=== PATIENT | female | born 1990 | race Caucasian/White ===

== ENCOUNTER 2024-09-18 05:54 | Inpatient (IN) | payer OTHER ==
[2024-09-18] MEDS ORDERED: OXYTOCIN 10 UNIT/ML 1 ML VIAL IM PRN (06:23)
[2024-09-18] MEDS ORDERED: TERBUTALINE 1 MG/ML VIAL SQ PRN (06:23)
[2024-09-18] MEDS ORDERED: METHYLERGONOVINE 0.2 MG/ML 1 ML AMP IM PRN (06:23)
[2024-09-18] MEDS ORDERED: CARBOPROST TROMETHAMINE 250 MCG/ML 1 ML AMP IM PRN (06:23)
[2024-09-18] MEDS ORDERED: LIDOCAINE 0.5% (PF) 5 MG/ML (50 ML SDV) SQ PRN (06:23)
[2024-09-18] MEDS ORDERED: miSOPROStoL 200 MCG TAB PO PRN (06:23)
[2024-09-18] MEDS ORDERED: miSOPROStoL 200 MCG TAB RECTAL PRN (06:23)
[2024-09-18] MEDS ORDERED: TRANEXAMIC 1,000 MG/100ML-NACL 1,000 MG in EMPTY BAG 1 BAG IV PRN (06:23)
[2024-09-18 06:57] LABS: Basophils % (A) 0 %; Eosinophils # (A) 0.2 k/uL (0-0.7); Eosinophils % (A) 2 %; HCT 34.8 % (34.0-46.0); HGB 12.1 gm/dL (11.4-16.0); Lymphocytes # (A) 2.1 k/uL (1.0-4.8); Lymphocytes % (A) 19 %; MCH 31.9 pg (25.0-35.0); MCHC 34.7 g/dL (31.0-37.0); MCV 91.7 fL (80.0-100.0); Mean Platelet Volume 8.3; Monocytes # (A) 0.5 k/uL (0-1.0); Monocytes % (A) 4 %; Neutrophils # (A) 8.2 k/uL (1.3-7.7); Neutrophils % (A) 74 %; Platelet Count 135 k/uL (150-450); RBC 3.79 m/uL (3.80-5.40); RDW 13.8 % (11.5-15.5); WBC 11.1 k/uL (3.8-10.6)
[2024-09-18] MEDS: LACTATED RINGERS 1,000 ML IV SCH (07:32)
[2024-09-18] MEDS: OXYTOCIN 30 UNITS/500 ML NS 30 UNIT in SALINE 1 500ML.BAG IV SCH (07:32)
[2024-09-18] MEDS ORDERED: BUTORPHANOL 1 MG/ML 1 ML VIAL IV PRN (09:47)
--- NOTE | 2024-09-18 09:51 | P.HPOB ---
History of Present Illness H&P Date: 09/18/24 Chief Complaint: 41 and 1 sevenths weeks, induction Patient is a 34-year-old 3 para 1-0-1-1 admitted at 41 and 1 sevenths weeks as established by last menstrual period and confirmed by 11-week ultrasound. She presents for postdates induction of labor with all signs reassuring, category 1 heart rate tracing. She did have 1 spontaneous deceleration shortly after arrival this morning which has resolved. Her has been entirely uncomplicated and group B strep status is negative. Obstetrical history: 3 para 1-0-1-1 with 1 term vaginal delivery. Current statistics are listed in history of present illness. EDC of 09/10/2024 was established by last menstrual period confirmed by 11-week ultrasound. Laboratory workup demonstrates a blood type of a positive with a negative antibody screen. Rubella status is immune. The remainder of the laboratory workup was within normal limits. trisomy testing was negative. 1 hour Glucola was normal and group B strep status is negative. Gynecologic history: Unremarkable with no history of any infections to include STDs. Review of Systems Review of systems is confined to history of present illness. Past Medical History Past Medical History: No Reported History History of Any Multi-Drug Resistant Organisms: None Reported Past Surgical History: No Surgical Hx Reported Past Anesthesia/Blood Transfusion Reactions: No Reported Reaction Past Psychological History: ADD/ADHD Smoking Status: Never smoker Past Alcohol Use History: None Reported Past Drug Use History: None Reported Medications and Allergies Home Medications Medication Instructions Recorded Confirmed Type Vit No.179/Iron/Folic 1 each PO DAILY 09/18/24 09/18/24 History [ Tablet] Allergies Allergy/AdvReac Type Severity Reaction Status Date / Time No Known Allergies Allergy Verified 09/18/24 06:20 Exam Vital Signs Temp Pulse Resp BP Pulse Ox 09/18/24 06:19 97.6 F 76 16 122/64 100 Intake and Output 09/17/24 09/18/24 09/18/24 22:59 06:59 14:59 Other: Weight 92.079 kg General, this is a well-developed, well-nourished white female in no acute distress. Her heart has a regular rhythm and rate without murmur. Her lungs are clear to auscultation bilaterally in all simmons. Her abdomen is gravid, nondistended, has normal active bowel sounds, soft, nontender, and without any palpable masses aside from the uterine fundus. Her extremities are without any cyanosis, clubbing, or edema and are nontender to palpation bilaterally. Digital cervical examination demonstrates her cervix to be 2+ centimeters dilated, 50% effaced, with a vertex and presentation at -2 station. Artificial rupture of membranes is carried out demonstrating clear fluid. Results Result Diagrams: 09/18/24 06:23 Abnormal Lab Results - Last 24 Hours (Table) 09/18/24 Range/Units 06:23 WBC 11.1 H (3.8-10.6) k/uL RBC 3.79 L (3.80-5.40) m/uL Plt Count 135 L (150-450) k/uL Neutrophils # 8.2 H (1.3-7.7) k/uL Assessment and Plan (1) Post-dates Current Visit: Yes Status: Acute Code(s): O48.0 - POST-TERM SNOMED Code(s): 49746613 Plan: The patient is admitted for induction of labor. Pitocin augmentation has been started and she has undergone artificial rupture membranes. She will have close maternal and surveillance and expectant management will be practiced. She is a good candidate for either IV or epidural analgesia, chart she may choose.
[2024-09-18] MEDS ORDERED: diphenhydrAMINE 50 MG CAP PO PRN (14:29)
[2024-09-18] MEDS ORDERED: SIMETHICONE 80 MG CHEWABLE PO PRN (14:29)
[2024-09-18] MEDS ORDERED: diphenhydrAMINE 25 MG CAP PO PRN (14:29)
[2024-09-18] MEDS ORDERED: diphenhydrAMINE 50 MG/ML 1 ML VIAL IVP PRN ×2 (14:29)
[2024-09-18] MEDS ORDERED: LANOLIN CREAM 1 GM TUBE TOPICAL PRN (14:29)
[2024-09-18] MEDS ORDERED: HYDROCORTISONE 2.5% RECTAL CREAM 30 GM TUBE RECTAL PRN (14:29)
[2024-09-18] MEDS ORDERED: ZOLPIDEM 5 MG TAB PO PRN (14:29)
[2024-09-18] MEDS ORDERED: OXYTOCIN 30 UNITS/500 ML NS 30 UNIT in SALINE 1 500ML.BAG IV SCH (14:30)
--- NOTE | 2024-09-18 14:34 | P.PROBDLV ---
Vaginal Delivery Note - . Vaginal Delivery Note: The patient is a 34-year-old 3 para 1-0-1-1 admitted at 41 and 1 sevenths weeks by good dating parameters. She is admitted for postdates induction of labor with all signs reassuring, category 1 heart rate tracing. Her was completely uncomplicated and group B strep status is negative. On labor and delivery, she had Pitocin started followed by artificial rupture of membranes for clear fluid. She made progress to the junction of the latent and active phase of labor and had an epidural catheter placed for analgesia. She made steady and relatively quick progress through the active phase of labor to complete and then pushed over the course of approximately 4-5 pushes to a normal spontaneous vaginal delivery of a viable 7 pound 2.5 ounce baby girl with Apgars of 8 at 1 minute and 9 at 5 minutes delivered in the direct occiput anterior position. The placenta was delivered spontaneously, intact, and grossly normal with a grossly normal, marginally inserted three- vessel cord. There were no lacerations of the perineum, vagina, or cervix. Estimated blood loss for the case was 100 mL or less. All sponge, instrument, and needle counts were correct. There were no complications. Both mother and are resting comfortably in recovery.
[2024-09-18] MEDS: BENZOCAINE/MENTHOL SPRAY 1 GM/SPRAY AEROSOL TOPICAL PRN (14:42)
[2024-09-18 16:33] VITALS: RESP 16
[2024-09-18] MEDS: ACETAMINOPHEN TAB 500 MG TAB PO SCH (17:03)
[2024-09-18] MEDS: IBUPROFEN 800 MG TAB PO SCH (17:03)
[2024-09-18] MEDS: IBUPROFEN 800 MG TAB PO PRN (17:49)
[2024-09-18] MEDS: SENNOSIDES-DOCUSATE SODIUM 1 EACH TAB PO SCH (22:18)
[2024-09-19 06:15] LABS: Basophils % (A) 0 %; Eosinophils # (A) 0.2 k/uL (0-0.7); Eosinophils % (A) 2 %; HCT 32.5 % (34.0-46.0); HGB 11.2 gm/dL (11.4-16.0); Lymphocytes % (A) 23 %; MCH 31.9 pg (25.0-35.0); MCHC 34.4 g/dL (31.0-37.0); MCV 92.7 fL (80.0-100.0); Mean Platelet Volume 8.5; Monocytes # (A) 0.5 k/uL (0-1.0); Monocytes % (A) 6 %; Neutrophils % (A) 68 %; Platelet Count 120 k/uL (150-450); RDW 13.6 % (11.5-15.5); WBC 8.9 k/uL (3.8-10.6)
[2024-09-19] MEDS: ACETAMINOPHEN TAB 500 MG TAB PO PRN (08:02)
[2024-09-19 08:43] VITALS: BP 104/68; PULSE 75; TEMP 97.7
--- NOTE | 2024-09-19 08:51 | P.DS ---
Providers Date of admission: 09/18/24 05:54 Expected date of discharge: 09/19/24 Attending physician: Kevin Orellana Primary care physician: Stated None - Discharge Diagnosis(es) (1) Post-dates Current Visit: Yes Status: Acute (2) Normal spontaneous vaginal delivery Current Visit: Yes Status: Acute Hospital Course: The patient is a 34-year-old 3 para 1-0-1-1 admitted at 41 and 1 sevenths weeks by good dating parameters. She is admitted for induction of labor with all signs reassuring, category 1 heart rate tracing. Her was uncomplicated and group B strep status is negative. On labor and delivery, she had Pitocin started followed by artificial rupture of membranes. She had an epidural catheter placed and made fairly quick progress through the active phase of labor to complete. She pushed to a normal spontaneous vaginal delivery of a viable 7 pound 2.5 ounce baby girl with Apgars of 8 at 1 minute and 9 at 5 minutes. Her course was unremarkable with vital signs remaining stable and her temperature was afebrile throughout. She was deemed stable for discharge on day #1 and was discharged home to follow-up in the office in 6 weeks time routinely. Discharge instructions included calling for any significantly increased bleeding or foul-smelling lochia, significantly increased fever abdominal pain, perineal complaints, breast complaints, or anything else that concerned her. She was additionally instructed to have nothing in the vagina to include intercourse over the next 6 weeks time. She understood her instructions and agrees to follow-up as noted above. Maternal blood type is a positive with a negative antibody screen. Rubella status is immune. Procedures: #1. Pitocin induction #2. Artificial rupture of membranes #3. Epidural analgesia #4. Normal spontaneous vaginal delivery Patient Condition at Discharge: Stable Plan - Discharge Summary New Discharge Prescriptions: No Action Vit No.179/Iron/Folic [ Tablet] 1 each PO DAILY Discharge Medication List Vit No.179/Iron/Folic [ Tablet] 1 each PO DAILY 09/18/24 [History] Follow up Appointment(s)/Referral(s): Kevin Orellana MD [STAFF PHYSICIAN] - 10/30/24 1:15 pm Discharge Disposition: HOME SELF-CARE
== END 2024-09-19 15:00 | disposition home or self-care (01) | DRG 807 ==
LOC: 4FBP 05:54
PROVIDERS: ADMIT Obstetrics & Gynecology; ATTEND Obstetrics & Gynecology
PROC: 10E0XZZ Delivery of Products of Conception, External Approach (ICD-10-PCS; principal; 2024-09-18)
PROC: 3E033VJ Introduction of Other Hormone into Peripheral Vein, Percutaneous Approach (ICD-10-PCS; 2024-09-18)
PROC: 10907ZC Drainage of Amniotic Fluid, Therapeutic from Products of Conception, Via Natural or Artificial Opening (ICD-10-PCS; 2024-09-18)
DX: O48.0 Post-term pregnancy (principal); Z37.0 Single live birth; O99.344 Other mental disorders complicating childbirth; F90.9 Attention-deficit hyperactivity disorder, unspecified type; Z3A.41 41 weeks gestation of pregnancy
CPT/HCPCS: 85025; 86850; 86900; 86901